=== PATIENT | female | born 1950 | race Caucasian/White ===

== ENCOUNTER 2017-11-09 15:54 | Emergency (ER) | payer OTHER ==
[2017-11-09] MEDS ORDERED: DIAZEPAM 5 MG TABLET ONE (16:18)
[2017-11-09] MEDS ORDERED: KETOROLAC TROMETHAMINE 30MG/ML ONE (16:19)
[2017-11-09] MEDS ORDERED: CYCLOBENZAPRINE HCL 10 MG TABLET ONE (16:19)
[2017-11-09] MEDS ORDERED: TETANUS/DIPHTHERIA TOXOID [ADULT] 0.5 ML VIAL IM ONE (16:20)
== END 2017-11-09 17:30 | disposition home or self-care (01) ==
LOC: EDH 15:54
DX: S50.01XA Contusion of right elbow, initial encounter (principal); S60.511A Abrasion of right hand, initial encounter; K21.9 Gastro-esophageal reflux disease without esophagitis; Z88.0 Allergy status to penicillin; Z88.2 Allergy status to sulfonamides; Z90.710 Acquired absence of both cervix and uterus; V89.2XXA Person injured in unspecified motor-vehicle accident, traffic, initial encounter; Y93.89 Activity, other specified; Y92.89 Other specified places as the place of occurrence of the external cause; Y99.8 Other external cause status
CPT/HCPCS: 70450; 71045; 72125; 73080; 90471; 90714; 96374; 99284; J1885